=== PATIENT | male | born 1940 | race Caucasian/White ===

== ENCOUNTER 2019-10-04 06:24 | Emergency (ER) | payer MEDICARE ==
[~2019-10-04] VITALS: Ht 182.9 cm; Wt 111.5 kg
--- NOTE | 2019-10-04 06:30 | NUR ---
THIS IS AN 79Y M BIB EMS FOR SOB W/ DRY COUGH X1 DAY. PT ON VACATION FROM [place] HX OF COPD HAS NOT TAKEN LASIX FOR HIS HX OF DVT IN 1 DAY. DENIES FEVER CHILLS , N/V/D. PT CONNECTED TO ALL MONITORS MERCEDES, LETTY.
--- NOTE | 2019-10-04 06:33 | NUR ---
MD AT BEDSIDE TO ASSESS PT
[2019-10-04] MEDS ORDERED: ALBUTEROL/IPRATROPIUM 2.5MG/0.5MG, 3 ML ONE (06:59)
[2019-10-04] MEDS ORDERED: ALBUTEROL/IPRATROPIUM 2.5MG/0.5MG, 3 ML NPPB ONE (07:00)
--- NOTE | 2019-10-04 07:05 | NUR ---
RECEIVED REPORT FROM [facility], PLAN OF CARE DISCUSSED.
[2019-10-04 07:17] LABS: BASOPHILS # (AUTO) 0.03 x10^3/uL (0-0.1); BASOPHILS % (AUTO) 1 % (0-1); EOSINOPHILS # (AUTO) 0.16 x10^3/uL (0-0.4); EOSINOPHILS % (AUTO) 3 % (1-7); LYMPHOCYTES # (AUTO) 0.75 x10^3/uL (1-3.4); LYMPHOCYTES % (AUTO) 13 % (22-44); MD NO; MEAN CORPUSCULAR HEMOGLOBIN 28.9 pg (27.5-34.5); MEAN CORPUSCULAR VOLUME 87.6 fL (81-97); MEAN PLATELET VOLUME 6.6 fL (7.4-10.4); MONOCYTES # (AUTO) 0.28 x10^3/uL (0.2-0.8); MONOCYTES % (AUTO) 5 % (2-9); NEUTROPHILS # (AUTO) 4.73 x10^3/uL (1.8-6.8); NEUTROPHILS % (AUTO) 79 % (42-75); PLATELET COUNT 283 x10^3/uL (130-400); RED BLOOD COUNT 4.45 x10^6/uL (4.38-5.82); RED CELL DISTRIBUTION WIDTH 17.4 % (9.4-14.8)
[2019-10-04 07:24] LABS: ALBUMIN 3.2 g/dL (3.4-5.0); ANION GAP 5 mmol/L (5-15); CALCIUM 8.3 mg/dL (8.5-10.1); CHLORIDE 108 mmol/L (98-107); CREATININE 1.29 mg/dL (0.7-1.3)
[2019-10-04 07:28] LABS: TROPONIN I < 0.015 ng/mL (0.000-0.045)
[2019-10-04 07:42] LABS: RAPID INFLUENZA A Negative (Negative); RAPID INFLUENZA B Negative (Negative)
[2019-10-04 07:51] VITALS: BP 138/68
--- NOTE | 2019-10-04 08:28 | NUR ---
DISCUSSED AT [facility] WITH PATIENT AND SPOUSE THAT THEY HAVE BEEN TEST FOR COVIN-19. EDUCATION: KEEP MASK ON, ISOLATED UNTIL RECEIVED A CALL REGARDING TEST RESULTS FROM [facility]. GOOD HAND WASHING. PT AND SPOUSE VERBALZIED UNDERSTANDING
--- NOTE | 2019-10-04 08:41 | NUR ---
PT PHONE NUMBER IS [phone]
== END 2019-10-04 09:05 | disposition home or self-care (01) ==
LOC: ED 08:20
DX: B34.9 Viral infection, unspecified (principal); Z20.828 Contact with and (suspected) exposure to other viral communicable diseases; J22 Unspecified acute lower respiratory infection; M06.9 Rheumatoid arthritis, unspecified; J44.9 Chronic obstructive pulmonary disease, unspecified; Z87.891 Personal history of nicotine dependence; Z86.718 Personal history of other venous thrombosis and embolism
CPT/HCPCS: 36415; 71045; 80048; 82040; 83880; 84484; 85025; 87081; 87400; 87486; 87581; 87633; 87798; 87880; 93005; 94640; 99285; J7512